=== PATIENT | female | born 1975 | race Caucasian/White ===

== ENCOUNTER 2016-08-09 05:13 | Inpatient (IN) | payer OTHER, MEDICAID ==
[2016-08-07 12:05] LABS: APPEARANCE,URINE CLEAR; BILIRUBIN,URINE NEGATIVE (NEGATIVE); GLUCOSE, URINE NEGATIVE (NEGATIVE); KETONES,URINE NEGATIVE (NEGATIVE); LEUKOCYTE ESTERASE,URINE NEGATIVE (NEGATIVE); NITRITE,URINE NEGATIVE (NEGATIVE); PROTEIN,URINE NEGATIVE (NEGATIVE); URINE SPECIFIC GRAVITY 1.014; UROBILINOGEN,URINE NEGATIVE mg/dL (<2.0)
[2016-08-07 12:08] LABS: ABSOLUTE LYMPHOCYTES (AUTO) 1.4 10^3/uL (0.5-4.7); ABSOLUTE MONOCYTES (AUTO) 0.7 10^3/uL (0.1-1.4); BASOPHILS % (AUTO) 0.3 % (0-2); EOSINOPHILS % (AUTO) 0.5 % (0-6); HEMATOCRIT 35.1 % (36.0-47.0); HEMOGLOBIN 12.1 g/dL (12.0-15.5); HGB HCT DIFFERENCE 1.2; MEAN CORPUSCULAR HEMOGLOBIN 31.3 pg (27.0-33.4); MEAN CORPUSCULAR HGB CONC 34.4 g/dL (32.0-36.0); MEAN CORPUSCULAR VOLUME 91 fl (80-97); MONOCYTES % (AUTO) 7.3 % (3-13); RED BLOOD COUNT 3.85 10^6/uL (3.72-5.28); RED CELL DISTRIBUTION WIDTH 14.1 % (11.5-14.0); SEGMENTED NEUTROPHILS % (AUTO) 76.9 % (42-78); WHITE BLOOD COUNT 9.1 10^3/uL (4.0-10.5)
[2016-08-07 12:21] LABS: URINE BARBITURATES SCREEN NEGATIVE; URINE METHADONE SCREEN NEGATIVE; URINE PHENCYCLIDINE SCREEN NEGATIVE
[~2016-08-09 05:13] MED LIST: CEFAZOLIN 2 GM/D5W RTU 2 GM/50 ML RTUPB IV SCH; RINGERS SOLUTION,LACTATED 1,000 ML IV PRN
[2016-08-09] MEDS ORDERED: PROPOFOL INJ 200 MG/20 ML VIAL IV ONE (07:34)
[2016-08-09] MEDS ORDERED: FENTANYL CITRATE INJ/PF 100 MCG/2 ML AMPUL ONE ×2 (07:35→10:46)
[2016-08-09] MEDS ORDERED: MIDAZOLAM 2 MG/2 ML INJ ONE (07:35)
[2016-08-09] MEDS ORDERED: OXYTOCIN 10 UNIT/ML VIAL ONE (07:35)
--- NOTE | 2016-08-09 09:06 | Non Stress Test Report ---
Non Stress Test Datetime Report Generated by CPN: 08/09/2016 09:05 DEMOGRAPHIC EGA NST: 37.0 INDICATION Indication for Study: Diabetes Mellitus; Ordered by Provider VITAL SIGNS Temperature - NST: 98.1 MONITORING Monitor Explained: Monitor Explained; Test Explained; Patient Verbalized Understanding Time on Monitor: 07/26/2016 16:39 Time off Monitor: 07/26/2016 17:07 NST Duration: 28 NST INTERVENTIONS NST Interventions: PO Hydration; Reposition Patient Physician Notified NST: Dr. Sharma BABY A: [id number] BABY A Movement : Present Contraction Frequency : irregular FHR Baseline : 135 Accelerations : 15X15 Decelerations : None Variability : Moderate 6-25bpm NST Review: Meets Criteria for Reactive NST NST Review and Verified By : Nela Petty RN NST Results: Reactive NST REPORT Report Trigger: Send Report
[2016-08-09] MEDS ORDERED: ACETAMINOPHEN 100 ML IV ONE (09:07)
--- NOTE | 2016-08-09 09:19 | Operative Report ---
Operative Report DATE OF SURGERY: 08/09/16 PREOPERATIVE DIAGNOSIS: Intrauterine at 39 weeks with history of C- section, desire for repeat to avoid uterine rupture and desire for permanent sterilization, gestational diabetic class AII on insulin POSTOPERATIVE DIAGNOSIS: Status post repeat low transverse cervical section with bilateral tubal ligation via Filshie clips, lysis of adhesions, class AII gestational diabetes OPERATION: Repeat low transverse cervical section with bilateral tubal ligation with Filshie clips SURGEON: BLAKE CHATMAN ANESTHESIA: Spinal TISSUE REMOVED OR ALTERED: Placenta ESTIMATED BLOOD LOSS: 450 mL INTRAOPERATIVE FINDINGS: George female infant, vertex presentation with clear amniotic fluid. Apgars were 6 and 7. Weight was 8 lbs. 5 oz. There were dense adhesions to the anterior aspect of the uterus. There was a serosal window on the left lower aspect of the uterus which was approximately 3-4 cm in size. Normal tubes and ovaries. PROCEDURE: After discussing risks benefits and alternatives of the procedure and obtaining informed consent the patient was taken to the operating room where spinal anesthesia was achieved. She was positioned in the dorsal supine position with a leftward tilt. She was then prepped and draped in the usual standard fashion. Pfannenstiel skin incision was made and the abdomen was entered in layers in the usual standard fashion. Dense adhesions of the uterus to the anterior aspect of the peritoneum were noted. Yazmin clamps were used to clamp and cut these. Suture ligation was performed. Manger of adhesions were taken down sharply. A low-transverse hysterotomy incision was made. The surgeon's hand was entered into the hysterotomy incision and the vertex elevated. After delivery of the head, shoulders and body were delivered easily. Nasopharynx and oropharynx were bulb suctioned. Cord was clamped x2 and cut. The infant was handed to pediatrics who were present. The placenta was manually extracted. The uterus was cleared of all clots and debris. The hysterotomy incision was closed with 0 Monocryl in a running locked fashion. A second layer closure was performed with 2-0 Vicryl. Excellent hemostasis was observed. Adhesion sites on the anterior aspect of the uterus were cauterized to assure hemostasis. A Filshie clip was placed across the isthmic portion of each fallopian tube. The uterus tubes and ovaries were returned to the peritoneal cavity. The cavity was irrigated with saline and hemostasis was again assured. [A layer of Interceed was placed in an inverted T fashion over the lower uterine segment and anterior aspect of the uterus.] Peritoneum was closed with 2-0 Vicryl in a pursestring fashion. Rectus muscles were loosely reapproximated with interrupted stitches of 2-0 Vicryl. The subfascial space was inspected and noted to be hemostatic. The fascia was closed with #1 Vicryl. The subcutaneous tissues were irrigated and hemostasis assured. The skin was closed in a subcuticular fashion with 4-0 Monocryl. An OpSite dressing was applied. The patient was taken to recovery in stable condition. All sponge needle lap and instrument counts were correct correct x2.
[2016-08-09] MEDS: IBUPROFEN 800 MG TABLET PO SCH ×3 (11:40→23:02)
[2016-08-09] MEDS ORDERED: HYDROMORPHONE HCL INJ/PF 2 MG/ML AMPULE IV PRN (11:47)
[2016-08-09] MEDS ORDERED: ONDANSETRON HCL INJ/PF 4 MG/2 ML SDV IV PRN (11:47)
[2016-08-09] MEDS ORDERED: ACETAMINOPHEN 325 MG TABLET PO PRN (11:47)
[2016-08-09] MEDS ORDERED: MEASLES,MUMPS&RUBELLA VACC/PF 0.5 ML VIAL SUBCUT PRN (11:47)
[2016-08-09] MEDS ORDERED: DIPH/PERTUSS(ACELL)/TETANUS VAC/PF 0.5 ML SYR (>=10YO) IM PRN (11:47)
[2016-08-09] MEDS ORDERED: OXYTOCIN/NORMAL SALINE 20 UNIT/1,000 ML RTUINJ INJ PRN (11:47)
[2016-08-09] MEDS ORDERED: SIMETHICONE 80 MG TAB.CHEW PO PRN (11:47)
[2016-08-09] MEDS ORDERED: PROMETHAZINE HCL INJ 25 MG/1 ML VIAL IM PRN (11:47)
--- NOTE | 2016-08-09 12:01 | L&D Flow Sheet ---
LD Flowsheet Datetime Report Generated by CPN: 08/09/2016 12:00 Datetime: 08/09/2016 10:53 Pulse: 81 (QS system process) SpO2 (%): 99 (QS system process) Datetime: 08/09/2016 10:50 NBP Sys/Katia/Mean (mmHg): 97 (QS system process) : 54 (QS system process) : 70 (QS system process) Pulse: 69 (QS system process) Datetime: 08/09/2016 10:48 Pulse: 76 (QS system process) SpO2 (%): 99 (QS system process) Datetime: 08/09/2016 10:43 Pulse: 71 (QS system process) SpO2 (%): 98 (QS system process) Datetime: 08/09/2016 10:38 Pulse: 70 (QS system process) SpO2 (%): 99 (QS system process) Datetime: 08/09/2016 10:35 NBP Sys/Katia/Mean (mmHg): 97 (QS system process) : 53 (QS system process) : 69 (QS system process) Pulse: 69 (QS system process) Datetime: 08/09/2016 10:33 Pulse: 70 (QS system process) SpO2 (%): 98 (QS system process) Datetime: 08/09/2016 10:28 Pulse: 68 (QS system process) SpO2 (%): 97 (QS system process) Datetime: 08/09/2016 10:23 Pulse: 69 (QS system process) SpO2 (%): 98 (QS system process) Datetime: 08/09/2016 10:20 NBP Sys/Katia/Mean (mmHg): 93 (QS system process) : 50 (QS system process) : 64 (QS system process) Pulse: 65 (QS system process) Datetime: 08/09/2016 10:18 Pulse: 65 (QS system process) SpO2 (%): 97 (QS system process) Datetime: 08/09/2016 10:13 Pulse: 72 (QS system process) SpO2 (%): 97 (QS system process) Datetime: 08/09/2016 10:08 Pulse: 73 (QS system process) SpO2 (%): 97 (QS system process) Datetime: 08/09/2016 10:05 NBP Sys/Katia/Mean (mmHg): 97 (QS system process) : 53 (QS system process) : 67 (QS system process) Pulse: 72 (QS system process) Datetime: 08/09/2016 10:03 Pulse: 71 (QS system process) SpO2 (%): 98 (QS system process) Datetime: 08/09/2016 09:58 Pulse: 67 (QS system process) SpO2 (%): 98 (QS system process) Datetime: 08/09/2016 09:53 Pulse: 70 (QS system process) SpO2 (%): 98 (QS system process) Datetime: 08/09/2016 09:50 NBP Sys/Katia/Mean (mmHg): 93 (QS system process) : 55 (QS system process) : 71 (QS system process) Pulse: 74 (QS system process) Datetime: 08/09/2016 09:48 Pulse: 77 (QS system process) SpO2 (%): 98 (QS system process) Datetime: 08/09/2016 09:43 Pulse: 74 (QS system process) SpO2 (%): 98 (QS system process) Datetime: 08/09/2016 09:38 Pulse: 76 (QS system process) SpO2 (%): 98 (QS system process) Datetime: 08/09/2016 09:35 NBP Sys/Katia/Mean (mmHg): 97 (QS system process) : 56 (QS system process) : 74 (QS system process) Pulse: 69 (QS system process) Datetime: 08/09/2016 09:33 Pulse: 71 (QS system process) SpO2 (%): 98 (QS system process) Datetime: 08/09/2016 09:30 NBP Sys/Katia/Mean (mmHg): 99 (QS system process) : 56 (QS system process) : 74 (QS system process) Pulse: 71 (QS system process) Datetime: 08/09/2016 09:28 Pulse: 74 (QS system process) SpO2 (%): 99 (QS system process) Datetime: 08/09/2016 09:25 NBP Sys/Katia/Mean (mmHg): 95 (QS system process) : 50 (QS system process) : 67 (QS system process) Pulse: 76 (QS system process) Datetime: 08/09/2016 09:23 Pulse: 83 (QS system process) SpO2 (%): 99 (QS system process) Datetime: 08/09/2016 09:20 NBP Sys/Katia/Mean (mmHg): 93 (QS system process) : 51 (QS system process) : 70 (QS system process) Pulse: 82 (QS system process) Datetime: 08/09/2016 09:18 Pulse: 86 (QS system process) SpO2 (%): 99 (QS system process) Datetime: 08/09/2016 09:16 Vital Signs Stage of : Recovery (Guerda Smallwood RN) NBP Sys/Katia/Mean (mmHg): 90 (QS system process) : 55 (QS system process) : 70 (QS system process) Pulse: 77 (QS system process) Respirations: 16 (Guerda Smallwood RN) Temperature (F): 97.4 (Guerda Smallwood RN) Temperature (C): 36.3 (QS system process) Temperature Route: Oral (Guerda Smallwood RN) Pain Pain Scale: 0 (Guerda Smallwood RN) Pain Presence: None/Denies (Guerda Cl, RN) Pain Type: N/A (Guerda Smallwood, RN) Pain Goal: 1 (Guerda Smallwood, RN) Pain Relief Measures: Comfort Measures (Guerda Cl, RN) Datetime: 08/09/2016 09:15 NBP Sys/Katia/Mean (mmHg): 85 (QS system process) : 48 (QS system process) : 63 (QS system process) Pulse: 82 (QS system process) Datetime: 08/09/2016 09:13 Vital Signs Stage of : Recovery (Guerda Smallwood, RN) Pulse: 84 (QS system process) SpO2 (%): 98 (QS system process) Datetime: 08/09/2016 09:10 NBP Sys/Katia/Mean (mmHg): 100 (QS system process) : 60 (QS system process) : 73 (QS system process) Pulse: 77 (QS system process) Communication LaborFlag: OB Triage (QS system process) Datetime: 08/09/2016 09:08 Pulse: 80 (QS system process) SpO2 (%): 100 (QS system process) Communication LaborFlag: OB Triage (QS system process) Datetime: 08/09/2016 09:05 NBP Sys/Katia/Mean (mmHg): 100 (QS system process) : 53 (QS system process) : 73 (QS system process) Pulse: 81 (QS system process) Communication LaborFlag: OB Triage (QS system process) Datetime: 08/09/2016 05:42 Bedside Blood Glucose: 107 (QS system process) Communication LaborFlag: OB Triage (QS system process)
[2016-08-09] MEDS: OXYCODONE-ACETAMINOPHEN 5-325 MG TABLET PO PRN ×2 (14:32→19:54)
[2016-08-09] MEDS: DOCUSATE SODIUM 100 MG CAPSULE PO SCH (17:47)
[2016-08-09] MEDS ORDERED: LIDOCAINE 2% INJ-PF (20 MG/ML) 10 ML AMPUL ONE (18:57)
[2016-08-09] MEDS ORDERED: PHENYLEPHRINE HCL INJ/PF 10 MG/1 ML SDV ONE (18:57)
[2016-08-09] MEDS ORDERED: METOCLOPRAMIDE HCL INJ/PF 10 MG/2 ML SDV ONE (18:57)
[2016-08-09] MEDS ORDERED: ONDANSETRON HCL INJ/PF 4 MG/2 ML SDV ONE (18:57)
[2016-08-10] MEDS: OXYCODONE-ACETAMINOPHEN 5-325 MG TABLET PO PRN ×2 (01:04→12:28)
[2016-08-10] MEDS: IBUPROFEN 800 MG TABLET PO SCH ×4 (05:47→23:39)
--- NOTE | 2016-08-10 06:07 | L&D General Admission ---
General Admit Datetime Report Generated by CPN: 08/10/2016 06:00 INFORMATION Patient Age: 41 (06/28/2016 10:56:QS system process) EDC: 08/16/2016 00:00 (06/28/2016 11:08:Guerda Smallwood RN) : 4 (06/28/2016 11:08:Kimberly Pitts RN) Para: 2 (07/26/2016 17:22:PATTIE Menendez) Term: 1 (06/28/2016 11:08:PATTIE Menendez) : 1 (06/28/2016 11:08:Kimberly Pitts RN) Spontaneous Abortions: 0 (06/28/2016 11:08:Kimberly Pitts RN) Induced Abortions: 0 (06/28/2016 11:08:Kimberly Pitts RN) Livin (06/28/2016 11:08:Kimberly Pitts RN) Cesareans: 1 (06/28/2016 11:08:Kimberly Pitts RN) VBACs: 0 (06/28/2016 11:08:Kimberly Pitts RN) Ectopic: 0 (06/28/2016 11:08:Kimberly Pitts RN) Multiple Births: 0 (06/28/2016 11:08:Kimberly Pitts RN) Baby, Number in Womb: 1 (07/26/2016 17:22:Zulma Ricci [facility]) CARE Primary Student Services Representative: [employer] (06/28/2016 11:08:Kimberly Pitts RN) Month of 1st Visit: December (06/28/2016 11:08:Guerda Smallwood RN) Adequate Care: Yes (06/28/2016 11:08:Guerda Smallwood RN) Height (in): 62 (08/09/2016 10:21:QS system process) ALLERGIES Medication Allergy: No (06/28/2016 11:08:Guerda Smallwood RN) Medication Allergies: No Known Allergies (07/26/2016) (07/26/2016 17:09:QS system process) Latex Allergy: No Latex Allergies (06/28/2016 11:08:Guerda Smallwood RN) Food Allergies: denies (06/28/2016 11:08:Guerda Smallwood RN) Environmental Allergies: denies (06/28/2016 11:08:Guerda Smallwood RN) COMMUNICATION Primary Language: [place] (06/28/2016 11:08:Kimberly Pitts RN) Medical Tx Preferred Language: [place] (06/28/2016 11:08:PATTIE Menendez) Communication Barrier(s): None (06/28/2016 11:08:Kimberly Pitts RN) DEMOGRAPHICS Address: [address] [place] [id number] (06/28/2016 10:56:QS system process) Zipcode: [phone] (06/28/2016 10:56:QS system process) Home (06/28/2016 10:56:QS system process) N: [phone] (06/28/2016 10:56:QS system process) Next of Kin Name: KIMBERLY MAE (06/28/2016 10:56:QS system process) Next of Kin (06/28/2016 10:56:QS system process) Next of Kin Relationship: MO (06/28/2016 10:56:QS system process) Date of : 1975 (06/28/2016 10:56:QS system process) Marital Status: Single (06/28/2016 10:56:QS system process) Sex: Female (06/28/2016 10:56:QS system process) Race: (06/28/2016 10:56:QS system process) Ethnicity: Non- or (06/28/2016 10:56:QS system process) Voodoo: Southern Tenriism (06/28/2016 10:56:QS system process) DRUG AND ALCOHOL USE Alcohol: No (06/28/2016 11:08:Guerda Smallwood RN) Cigarettes: Never Smoker. [id number] (06/28/2016 11:08:Guerda Smallwood RN) Marijuana: No (06/28/2016 11:08:Guerda Smallwood RN) Cocaine: No (06/28/2016 11:08:Guerda Smallwood RN) Other Illicit Drugs: No (06/28/2016 11:08:Guerda Smallwood RN) VACCINE HISTORY Influenza Vaccine: Yes (06/28/2016 11:08:Guerda Smallwood RN) Influenza Date: 05/2016 (06/28/2016 11:08:Guerda Smallwood RN) Pneumococcal Vaccine: No (06/28/2016 11:08:Guerda Smallwood RN) Tetanus Vaccine: Yes (06/28/2016 11:08:Guerda Smallwood RN) Tdap Vaccine: Yes (06/28/2016 11:08:Guerda Smallwood RN) Hepatitis B Vaccine: Yes (06/28/2016 11:08:Guerda Smallwood RN) Feeding Preference: Formula (06/28/2016 11:08:Guerda Smallwood RN) Benefit of Breast Feed Discussed: Yes (06/28/2016 11:08:Guerda Smallwood RN) Circumcision: N/A (06/28/2016 11:08:Guerda Smallwood RN) Classes Attended: No (06/28/2016 11:08:Guerda Smallwood RN) Tubal Ligation: Yes (06/28/2016 11:08:Guerda Smallwood RN) Tubal Authorization Signed: No (06/28/2016 11:08:Guerda Smallwood RN) Consent: N/A (06/28/2016 11:08:Guerda Smallwood RN) Consent Signed: N/A (06/28/2016 11:08:Guerda Smallwood RN) Pain Management Plans: Spinal (06/28/2016 11:08:Guerda Smallwood RN) Plans for Labor and Delivery: None (06/28/2016 11:08:Guerda Smallwood RN) Support Person: Harry Chamberlain (06/28/2016 11:08:Guerda Smallwood RN) Support Person Relationship: (06/28/2016 11:08:Guerda Smallwood RN) Cultural/Spritual Practice: No (06/28/2016 11:08:Guerda Smallwood RN) Spir/Cult Dietary Needs: No (06/28/2016 11:08:Guerda Smallwood RN) LIVING SITUATION/DISCHARGE PLAN Living Arrangements: House (06/28/2016 11:08:Guerda Smallwood RN) Adequate Access to:: Electric; Heat; Refrigeration; Plumbing/Running water; Phone; Transportation (06/28/2016 11:08:Guerda Smallwood RN) WIC Program: Yes (06/28/2016 11:08:Guerda Smallwood RN) Discharge Design Maker Person: Harry Chamberlain (06/28/2016 11:08:Guerda Smallwood RN) Person to Help after Discharge: Harry Chamberlain (06/28/2016 11:08:Guerda Smallwood RN) Currently Using Commun Resources: No (06/28/2016 11:08:Guerda Smallwood RN) Car Seat for Discharge: No (06/28/2016 11:08:Guerda Smallwood RN) Adoption Requested: No (06/28/2016 11:08:Guerda Smallwood RN) Pt Contact w/infant Post : N/A (06/28/2016 11:08:Guerda Smallwood RN) LABS Hemoglobin: 12.1 (08/07/2016 11:29:QS system process) Hematocrit: 35.1 L (08/07/2016 11:29:QS system process) MCV: 91 (08/07/2016 11:29:QS system process) OB/PREVIOUS HISTORY Previous Procedures: Ultrasound; NST (06/28/2016 11:08:Guerda Smallwood RN) Current Procedures: Ultrasound; NST (06/28/2016 11:08:Guerda Smallwood RN) History of Previous : No (06/28/2016 11:08:Guerda Smallwood RN) History of Gestational Diabetes: Yes (06/28/2016 11:08:Guerda Smallwood RN) History of PIH: No (06/28/2016 11:08:Guerda Smallwood RN) History of Incompetent Cervix: No (06/28/2016 11:08:Guerda Smallwood RN) History of Placenta Previa/Abrup: No (06/28/2016 11:08:Guedra Smallwood RN) History of Macrosomia: No (06/28/2016 11:08:Guerda Smallwood RN) History of IUGR: No (06/28/2016 11:08:Guerda Smallwood RN) History of Hemorrhage: Yes (06/28/2016 11:08:Guerda Smallwood RN) History of Loss/Stillborn: No (06/28/2016 11:08:Guerda Smallwood RN) History of : No (06/28/2016 11:08:Guerda Smallwood RN) History of D (Rh) Sensitization: No (06/28/2016 11:08:Guerda Smallwood RN) History Recurrent Loss/Stillborn: No (06/28/2016 11:08:Guerda Smallwood RN) History Depression/PP Depression: No (06/28/2016 11:08:Guerda Smallwood RN) History of Uterine Anomaly/KRISTAL: No (06/28/2016 11:08:Guerda Smallwood RN) History of Infertility: No (06/28/2016 11:08:Guerda Smallwood RN) History of ART Treatment: No (06/28/2016 11:08:Guerda Smallwood RN) History of KRISTAL: No (06/28/2016 11:08:Guerda Smallwood RN) MEDICAL HISTORY Med Hx Diabetes: No (06/28/2016 11:08:Guerda Smallwood RN) Med Hx Hypertension: No (06/28/2016 11:08:Guerda Smallwood RN) Med Hx Heart Disease: No (06/28/2016 11:08:Guerda Smallwood RN) Med Hx Autoimmune Disorder: No (06/28/2016 11:08:Guerda Smallwood RN) Med Hx Kidney Disease/UTI: No (06/28/2016 11:08:Guerda Smallwood RN) Med Hx Neurologic/Epilepsy: No (06/28/2016 11:08:Guerda Smallwood RN) Med Hx Psychiatric Disorders: No (06/28/2016 11:08:Guerda Smallwood RN) Med Hx Hepatitis/Liver Disease: No (06/28/2016 11:08:Guerda Smallwood RN) Med Hx Varicosities/Phlebitis: No (06/28/2016 11:08:Guerda Smallwood RN) Med Hx Thyroid Dysfunction: No (06/28/2016 11:08:Guerda Smallwood RN) Med Hx Trauma/Violence: No (06/28/2016 11:08:Guerda Smallwood RN) Med Hx Blood Transfusion: No (06/28/2016 11:08:Guerda Smallwood RN) Med Hx Pulmonary (Asthma,TB): No (06/28/2016 11:08:Guerda Smallwood RN) Med Hx Breast: No (06/28/2016 11:08:Guerda Smallwood RN) Med Hx LAUNCH MANAGER Surgery: No (06/28/2016 11:08:Guerda Smallwood RN) Med Hx Hospitalization/Surgery: Yes (06/28/2016 11:08:Guerda Smallwood RN) Med Hx Anesthetic Complications: No (06/28/2016 11:08:Guerda Smallwood RN) Med Hx Abnormal Pap Smear: No (06/28/2016 11:08:Guerda Smallwood RN) Other Medical Diseases: No (06/28/2016 11:08:Guerda Smallwood RN) Med Hx Significant Family Hx: No (06/28/2016 11:08:Guerda Smallwood RN) INFECTIOUS HISTORY Inf Hx Gonorrhea: Yes (06/28/2016 11:08:Guerda Smallwood RN) Inf Hx Chlamydia: Yes (06/28/2016 11:08:Guerda Smallwood RN) Inf Hx Syphilis: No (06/28/2016 11:08:Guerda Smallwood RN) Inf Hx HIV/AIDS: No (06/28/2016 11:08:Guerda Smallwood RN) Inf Hx Human Papilloma Virus: No (06/28/2016 11:08:Guerda Smallwood RN) Inf Hx Pt/Partner Genital Herpes: No (06/28/2016 11:08:Guerda Smallwood RN) Inf Hx Tuberculosis/Exposure: No (06/28/2016 11:08:Guerda Smallwood RN) Inf Hx Hepatitis B,C: No (06/28/2016 11:08:Guerda Smallwood RN) Inf Hx Rash or Viral Illness: No (06/28/2016 11:08:Gureda Smallwood RN) GENETIC HISTORY Gen Hx Age >=35 at BRYCE: No (06/28/2016 11:08:Guerda Smallwood RN) Gen Hx Thalassemia: No (06/28/2016 11:08:Guerda Smallwood RN) Gen Hx Neural Tube Defect: No (06/28/2016 11:08:Guerda Smallwood RN) Gen Hx Down's Syndrome: No (06/28/2016 11:08:Guerda Smallwood RN) Gen Hx Thony-Sachs: No (06/28/2016 11:08:Guerda Smallwood RN) Gen Hx [place]: No (06/28/2016 11:08:Guerda Smallwood RN) Gen Hx Familial Dysautonomia: No (06/28/2016 11:08:Guerda Smallwood RN) Gen Hx Sickle Cell Disease/Trait: No (06/28/2016 11:08:Guerda Smallwood RN) Gen Hx Hemophilia/Blood Disorder: No (06/28/2016 11:08:Guerda Smallwood RN) Gen Hx Muscular Dystrophy: No (06/28/2016 11:08:Guerda Smallwood RN) Gen Hx [place]tons Chorea: No (06/28/2016 11:08:Guerda Smallwood RN) Gen Hx Mental Retardation/Autism: No (06/28/2016 11:08:Guerda Smallwood RN) Gen Hx Tested for Fragile X: No (06/28/2016 11:08:Guerda Smallwood RN) Gen Hx Other Inher/Chromosomal: No (06/28/2016 11:08:Guerda Smallwood RN) Gen Hx Maternal Metabolic DO: No (06/28/2016 11:08:Guerda Smallwood RN) Gen Hx Pt Father or FOB Defect: No (06/28/2016 11:08:Guerda Smallwood RN) Gen Hx Other Genetic History: No (06/28/2016 11:08:Guerda Smallwood RN) Gen Hx Drugs/Meds since LMP: No (06/28/2016 11:08:Guerda Smallwood RN)
--- NOTE | 2016-08-10 06:07 | L&D Current Admission ---
Current Admit Datetime Report Generated by CPN: 08/10/2016 06:00 ADMISSION INFORMATION Chief Complaint: Suspected Rupture of Membranes (07/11/2016 09:14:Guerda Smallwood RN)
[2016-08-10 06:24] LABS: HEMATOCRIT 30.7 % (36.0-47.0); HEMOGLOBIN 10.4 g/dL (12.0-15.5); HGB HCT DIFFERENCE 0.5; MEAN CORPUSCULAR HGB CONC 33.8 g/dL (32.0-36.0); MEAN CORPUSCULAR VOLUME 92 fl (80-97); RED BLOOD COUNT 3.35 10^6/uL (3.72-5.28); RED CELL DISTRIBUTION WIDTH 14.5 % (11.5-14.0); WHITE BLOOD COUNT 10.7 10^3/uL (4.0-10.5)
[2016-08-10] MEDS: DOCUSATE SODIUM 100 MG CAPSULE PO SCH ×2 (09:46→17:53)
[2016-08-10] MEDS: PRENATAL VITAMIN W-O CA NO5/FE FUMARATE/FA CAPSULE PO SCH (09:46)
--- NOTE | 2016-08-10 12:21 | PDOC PROGRESS REPORT ---
Subjective-OB Subjective: Post Delivery Day: 41 year old. Denies any needs at this time Physical Exam (OB) Vital Signs: Temp Pulse Resp BP Pulse Ox 98.0 F 93 16 101/60 98 08/10/16 08:15 08/10/16 08:15 08/10/16 08:15 08/10/16 08:15 08/10/16 08:15 Intake & Output 08/09/16 08/10/16 08/11/16 06:59 06:59 06:59 Intake Total 3342 Output Total 1775 Balance 1567 Weight 87.997 kg - Dressing Removed: No - opsite dressing on Incision: Dressing - Bilateral Tubal Ligation Dressing Removed: No - opsite dressing Site: Dressing - Lochia Lochia Amount: Scant < 10 ml Lochia Color: Rubra/Red - Abdomen Description: Tender, Soft Hernia Present: No Bowel Sounds: Normoactive Flatus Presence: Absent Stool: No Fundal Description: Firm, Midline Fundal Height: u/u - u/2 Objective-Diagnostic Laboratory: 08/10/16 06:11 08/10/16 06:11 WBC 10.7 H RBC 3.35 L Hgb 10.4 L Hct 30.7 L MCV 92 MCH 31.0 MCHC 33.8 RDW 14.5 H Plt Count 198
[2016-08-11] MEDS: IBUPROFEN 800 MG TABLET PO SCH (05:31)
--- NOTE | 2016-08-11 06:08 | L&D Current Admission ---
Current Admit Datetime Report Generated by CPN: 08/11/2016 06:00 ADMISSION INFORMATION Chief Complaint: Suspected Rupture of Membranes (07/11/2016 09:14:Guerda Smallwood RN)
--- NOTE | 2016-08-11 06:08 | L&D General Admission ---
General Admit Datetime Report Generated by CPN: 08/11/2016 06:00 INFORMATION Patient Age: 41 (06/28/2016 10:56:QS system process) EDC: 08/16/2016 00:00 (06/28/2016 11:08:Guerda Smallwood RN) : 4 (06/28/2016 11:08:Kimberly Pitts RN) Para: 2 (07/26/2016 17:22:PATTIE Menendez) Term: 1 (06/28/2016 11:08:PATTIE Menendez) : 1 (06/28/2016 11:08:Kimberly Pitts RN) Spontaneous Abortions: 0 (06/28/2016 11:08:Kimberly Ptits RN) Induced Abortions: 0 (06/28/2016 11:08:Kimberly Pitts RN) Livin (06/28/2016 11:08:Kimberly Pitts RN) Cesareans: 1 (06/28/2016 11:08:Kimberly Pitts RN) VBACs: 0 (06/28/2016 11:08:Kimberly Pitts RN) Ectopic: 0 (06/28/2016 11:08:Kimberly Pitts RN) Multiple Births: 0 (06/28/2016 11:08:Kimberly Pitts RN) Baby, Number in Womb: 1 (07/26/2016 17:22:Zulma Ricci [facility] CARE Primary Gas Treater: [facility] (06/28/2016 11:08:Kimberly Pitts RN) Month of 1st Visit: December (06/28/2016 11:08:Guerda Smallwood RN) Adequate Care: Yes (06/28/2016 11:08:Guerda Smallwood RN) Height (in): 62 (08/09/2016 10:21:QS system process) ALLERGIES Medication Allergy: No (06/28/2016 11:08:Guerda Smallwood RN) Medication Allergies: No Known Allergies (07/26/2016) (07/26/2016 17:09:QS system process) Latex Allergy: No Latex Allergies (06/28/2016 11:08:Guerda Smallwood RN) Food Allergies: denies (06/28/2016 11:08:Guerda Smallwood RN) Environmental Allergies: denies (06/28/2016 11:08:Guerda Smallwood RN) COMMUNICATION Primary Language: Samoan (06/28/2016 11:08:Kimberly Pitts RN) Medical Tx Preferred Language: Samoan (06/28/2016 11:08:PATTIE Menendez) Communication Barrier(s): None (06/28/2016 11:08:Kimberly Pitts RN) DEMOGRAPHICS Address: [address] [place] [id number] (06/28/2016 10:56:QS system process) Zipcode: [phone] (06/28/2016 10:56:QS system process) Home (06/28/2016 10:56:QS system process) N: [id number] (06/28/2016 10:56:QS system process) Next of Kin Name: KIMBERLY MAE (06/28/2016 10:56:QS system process) Next of Kin (06/28/2016 10:56:QS system process) Next of Kin Relationship: MO (06/28/2016 10:56:QS system process) Date of : 1975 (06/28/2016 10:56:QS system process) Marital Status: Single (06/28/2016 10:56:QS system process) Sex: Female (06/28/2016 10:56:QS system process) Race: (06/28/2016 10:56:QS system process) Ethnicity: Non- or (06/28/2016 10:56:QS system process) Protestant: Southern Yazidi (06/28/2016 10:56:QS system process) DRUG AND ALCOHOL USE Alcohol: No (06/28/2016 11:08:Guerda Smallwood RN) Cigarettes: Never Smoker. [id number] (06/28/2016 11:08:Guerda Smallwood RN) Marijuana: No (06/28/2016 11:08:Guerda Smallwood RN) Cocaine: No (06/28/2016 11:08:Guerda Smallwood RN) Other Illicit Drugs: No (06/28/2016 11:08:Guerda Smallwood RN) VACCINE HISTORY Influenza Vaccine: Yes (06/28/2016 11:08:Guerda Smallwood RN) Influenza Date: 05/2016 (06/28/2016 11:08:Guerda Smallwood RN) Pneumococcal Vaccine: No (06/28/2016 11:08:Guerda Smallwood RN) Tetanus Vaccine: Yes (06/28/2016 11:08:Guerda Smallwood RN) Tdap Vaccine: Yes (06/28/2016 11:08:Guerda Smallwood RN) Hepatitis B Vaccine: Yes (06/28/2016 11:08:Guerda Smallwood RN) Feeding Preference: Formula (06/28/2016 11:08:Guerda Smallwood RN) Benefit of Breast Feed Discussed: Yes (06/28/2016 11:08:Guerda Smallwood RN) Circumcision: N/A (06/28/2016 11:08:Guerda Smallwood RN) Classes Attended: No (06/28/2016 11:08:Guerda Smallwood RN) Tubal Ligation: Yes (06/28/2016 11:08:Guerda Smallwood RN) Tubal Authorization Signed: No (06/28/2016 11:08:Guerda Smallwood RN) Consent: N/A (06/28/2016 11:08:Guerda Smallwood RN) Consent Signed: N/A (06/28/2016 11:08:Guerda Smallwood RN) Pain Management Plans: Spinal (06/28/2016 11:08:Guerda Smallwood RN) Plans for Labor and Delivery: None (06/28/2016 11:08:Guerda Smallwood RN) Support Person: Harry Chamberlain (06/28/2016 11:08:Guerda Smallwood RN) Support Person Relationship: (06/28/2016 11:08:Guerda Smallwood RN) Cultural/Spritual Practice: No (06/28/2016 11:08:Guerda Smallwood RN) Spir/Cult Dietary Needs: No (06/28/2016 11:08:Guerda Smallwood RN) LIVING SITUATION/DISCHARGE PLAN Living Arrangements: House (06/28/2016 11:08:Guerda Smallwood RN) Adequate Access to:: Electric; Heat; Refrigeration; Plumbing/Running water; Phone; Transportation (06/28/2016 11:08:Guerda Smallwood RN) WIC Program: Yes (06/28/2016 11:08:Guerda Smallwood RN) Discharge Nutrition Services Worker Person: Harry Chamberlain (06/28/2016 11:08:Guerda Smallwood RN) Person to Help after Discharge: Harry Chamberlain (06/28/2016 11:08:Guerda Smallwood RN) Currently Using Commun Resources: No (06/28/2016 11:08:Guerda Smallwood RN) Car Seat for Discharge: No (06/28/2016 11:08:Guerda Smallwood RN) Adoption Requested: No (06/28/2016 11:08:Guerda Smallwood RN) Pt Contact w/infant Post : N/A (06/28/2016 11:08:Guerda Smallwood RN) LABS Hemoglobin: 10.4 L (08/10/2016 06:11:QS system process) Hematocrit: 30.7 L (08/10/2016 06:11:QS system process) MCV: 92 (08/10/2016 06:11:QS system process) OB/PREVIOUS HISTORY Previous Procedures: Ultrasound; NST (06/28/2016 11:08:Guerda Smallwood RN) Current Procedures: Ultrasound; NST (06/28/2016 11:08:Guerda Smallwood RN) History of Previous : No (06/28/2016 11:08:Guerda Smallwood RN) History of Gestational Diabetes: Yes (06/28/2016 11:08:Guerda Smallwood RN) History of PIH: No (06/28/2016 11:08:Guerda Smallwood RN) History of Incompetent Cervix: No (06/28/2016 11:08:Guerda Smallwood RN) History of Placenta Previa/Abrup: No (06/28/2016 11:08:Guerda Smallwood RN) History of Macrosomia: No (06/28/2016 11:08:Guerda Smallwood RN) History of IUGR: No (06/28/2016 11:08:Guerda Smallwood RN) History of Hemorrhage: Yes (06/28/2016 11:08:Guerda Smallwood RN) History of Loss/Stillborn: No (06/28/2016 11:08:Guerda Smallwood RN) History of : No (06/28/2016 11:08:Guerda Smallwood RN) History of D (Rh) Sensitization: No (06/28/2016 11:08:Guerda Smallwood RN) History Recurrent Loss/Stillborn: No (06/28/2016 11:08:Guerda Smallwood RN) History Depression/PP Depression: No (06/28/2016 11:08:Guerda Smallwood RN) History of Uterine Anomaly/KRISTAL: No (06/28/2016 11:08:Guerda Smallwood RN) History of Infertility: No (06/28/2016 11:08:Guerda Smallwood RN) History of ART Treatment: No (06/28/2016 11:08:Guerda Smallwood RN) History of KRISTAL: No (06/28/2016 11:08:Guerda Smallwood RN) MEDICAL HISTORY Med Hx Diabetes: No (06/28/2016 11:08:Guerda Smallwood RN) Med Hx Hypertension: No (06/28/2016 11:08:Guerda Smallwood RN) Med Hx Heart Disease: No (06/28/2016 11:08:Guerda Smallwood RN) Med Hx Autoimmune Disorder: No (06/28/2016 11:08:Guerda Smallwood RN) Med Hx Kidney Disease/UTI: No (06/28/2016 11:08:Guerda Smallwood RN) Med Hx Neurologic/Epilepsy: No (06/28/2016 11:08:Guerda Smallwood RN) Med Hx Psychiatric Disorders: No (06/28/2016 11:08:Guerda Smallwood RN) Med Hx Hepatitis/Liver Disease: No (06/28/2016 11:08:Guerda Smallwood RN) Med Hx Varicosities/Phlebitis: No (06/28/2016 11:08:Guedra Smallwood RN) Med Hx Thyroid Dysfunction: No (06/28/2016 11:08:Guerda Smallwood RN) Med Hx Trauma/Violence: No (06/28/2016 11:08:Guerda Smallwood RN) Med Hx Blood Transfusion: No (06/28/2016 11:08:Guerda Smallwood RN) Med Hx Pulmonary (Asthma,TB): No (06/28/2016 11:08:Guerda Smallwood RN) Med Hx Breast: No (06/28/2016 11:08:Guerda Smallwood RN) Med Hx SCIENTIFIC SYSTEMS ANALYST Surgery: No (06/28/2016 11:08:Guerda Smallwood RN) Med Hx Hospitalization/Surgery: Yes (06/28/2016 11:08:Guerda Smallwood RN) Med Hx Anesthetic Complications: No (06/28/2016 11:08:Guerda Smallwood RN) Med Hx Abnormal Pap Smear: No (06/28/2016 11:08:Guerda Smallwood RN) Other Medical Diseases: No (06/28/2016 11:08:Guerda Smallwood RN) Med Hx Significant Family Hx: No (06/28/2016 11:08:Guerda Smallwood RN) INFECTIOUS HISTORY Inf Hx Gonorrhea: Yes (06/28/2016 11:08:Guerda Smallwood RN) Inf Hx Chlamydia: Yes (06/28/2016 11:08:Guerda Smallwood RN) Inf Hx Syphilis: No (06/28/2016 11:08:Guerda Smallwood RN) Inf Hx HIV/AIDS: No (06/28/2016 11:08:Guerda Smallwood RN) Inf Hx Human Papilloma Virus: No (06/28/2016 11:08:Guerda Smallwood RN) Inf Hx Pt/Partner Genital Herpes: No (06/28/2016 11:08:Guerda Smallwood RN) Inf Hx Tuberculosis/Exposure: No (06/28/2016 11:08:Guerda Smallwood RN) Inf Hx Hepatitis B,C: No (06/28/2016 11:08:Guerda Smallwood RN) Inf Hx Rash or Viral Illness: No (06/28/2016 11:08:Guerda Smallwood RN) GENETIC HISTORY Gen Hx Age >=35 at BRYCE: No (06/28/2016 11:08:Guerda Smallwood RN) Gen Hx Thalassemia: No (06/28/2016 11:08:Guerda Smallwood RN) Gen Hx Neural Tube Defect: No (06/28/2016 11:08:Guerda Smallwood RN) Gen Hx Down's Syndrome: No (06/28/2016 11:08:Guerda Smallwood RN) Gen Hx Thony-Sachs: No (06/28/2016 11:08:Guerda Smallwood RN) Gen Hx [place]: No (06/28/2016 11:08:Guerda Smallwood RN) Gen Hx Familial Dysautonomia: No (06/28/2016 11:08:Guerda Smallwood RN) Gen Hx Sickle Cell Disease/Trait: No (06/28/2016 11:08:Guerda Smallwood RN) Gen Hx Hemophilia/Blood Disorder: No (06/28/2016 11:08:Guerda Smallwood RN) Gen Hx Muscular Dystrophy: No (06/28/2016 11:08:Guerda Smallwood RN) Gen Hx Huntingtons Chorea: No (06/28/2016 11:08:Guerda Smallwood RN) Gen Hx Mental Retardation/Autism: No (06/28/2016 11:08:Guerda Smallwood RN) Gen Hx Tested for Fragile X: No (06/28/2016 11:08:Guerda Smallwood RN) Gen Hx Other Inher/Chromosomal: No (06/28/2016 11:08:Guerda Smallwood RN) Gen Hx Maternal Metabolic DO: No (06/28/2016 11:08:Guerda Smallwood RN) Gen Hx Pt Father or FOB Defect: No (06/28/2016 11:08:Guerda Smallwood RN) Gen Hx Other Genetic History: No (06/28/2016 11:08:Guerda Smallwood RN) Gen Hx Drugs/Meds since LMP: No (06/28/2016 11:08:Guerda Smallwood RN)
[2016-08-11] MEDS: OXYCODONE-ACETAMINOPHEN 5-325 MG TABLET PO PRN (09:08)
[2016-08-11] MEDS: PRENATAL VITAMIN W-O CA NO5/FE FUMARATE/FA CAPSULE PO SCH (09:08)
[2016-08-11] MEDS: DOCUSATE SODIUM 100 MG CAPSULE PO SCH (09:09)
--- NOTE | 2016-08-11 10:14 | PDOC PROGRESS REPORT ---
Subjective-OB Subjective: Post Delivery Day: 41 year old. Denies any needs at this time. Ready to go home. Physical Exam (OB) Vital Signs: Temp Pulse Resp BP Pulse Ox 97.9 F 86 16 98/60 L 97 08/11/16 08:14 08/11/16 08:14 08/11/16 08:14 08/11/16 08:14 08/11/16 08:14 Intake & Output 08/10/16 08/11/16 08/12/16 06:59 06:59 06:59 Intake Total 3342 600 Output Total 1775 Balance 1567 600 - Dressing Removed: No - opsite dressing on Incision: Dressing - Bilateral Tubal Ligation Dressing Removed: No - opsite dressing Site: Dressing - Lochia Lochia Amount: Small 10-25 ml Lochia Color: Rubra/Red - Abdomen Description: Soft, Round Hernia Present: No Bowel Sounds: Normoactive Flatus Presence: Present Stool: No Fundal Description: Firm, Midline Fundal Height: u/u - u/2 Objective-Diagnostic Laboratory: 08/10/16 06:11
--- NOTE | 2016-08-11 10:23 | PDOC DISCHARGE SUMMARY ---
Discharge Summary-OB Discharge Date: 08/11/16 - Final Diagnosis (1) AMA (advanced maternal age) multigravida 35+ Is this a current diagnosis for this admission?: Yes (2) Delivery by elective caesarean section Is this a current diagnosis for this admission?: Yes (3) Gestational diabetes mellitus (GDM) requiring insulin Is this a current diagnosis for this admission?: Yes - Discharge Medication Home Medications: Vit/Iron Fumarate/FA [ Tablet] 1 each PO DAILY 06/28/16 Docusate Sodium [Colace 100 mg Capsule] 100 mg PO BID #30 capsule 08/11/16 Ibuprofen [Motrin 800 mg Tablet] 800 mg PO Q6 #30 tablet 08/11/16 Oxycodone HCl/Acetaminophen [Percocet 5-325 mg Tablet] 1 tab PO Q4HP PRN #20 tablet 08/11/16 Reason(s) for Admission: Ceasarean Section-Repeat Procedures: Ultrasound Intrapartum Procedure(s): : Low Cervical, Transverse - [place] Data Baby 1 Female at 1 minute: 6 at 5 minutes: 7 Weight: 3.77 kg Home with Mother: Yes Complications: No - Diagnosis Test Laboratory: Temp Pulse Resp BP Pulse Ox 97.9 F 86 16 98/60 L 97 08/11/16 08:14 08/11/16 08:14 08/11/16 08:14 08/11/16 08:14 08/11/16 08:14 08/07/16 08/07/16 08/10/16 11:15 11:29 06:11 RBC 3.85 3.35 L Hgb 12.1 10.4 L Hct 35.1 L 30.7 L Urine Opiates Screen NEGATIVE - Discharge information/Instructions Discharge Activity: Activity As Tolerated, Balance Activity w/Rest, No Lifting Over 10 Pounds, No Lifting/Push/Pulling, Non-Ambulatory Child, Pelvic Rest, Slowly Increase Activity, No tub bath Discharge Diet: Regular Disposition: HOME, SELF-CARE Follow up with: [facility] in: 1, Weeks
[2016-08-11 10:36] VITALS: BP 128/72
== END 2016-08-11 13:10 | disposition home or self-care (01) | DRG 766 ==
LOC: 2S 05:13
PROVIDERS: ADMIT Specialist; ATTEND Specialist
PROC: 0UL70CZ Occlusion of Bilateral Fallopian Tubes with Extraluminal Device, Open Approach (ICD-10-PCS; 2016-08-09)
PROC: 4A1HXCZ Monitoring of Products of Conception, Cardiac Rate, External Approach (ICD-10-PCS; 2016-08-09)
PROC: 10D00Z1 Extraction of Products of Conception, Low, Open Approach (ICD-10-PCS; principal; 2016-08-09 07:45)
DX: O34.211 Maternal care for low transverse scar from previous cesarean delivery (principal); O24.424 Gestational diabetes mellitus in childbirth, insulin controlled; O99.89 Other specified diseases and conditions complicating pregnancy, childbirth and the puerperium; N73.6 Female pelvic peritoneal adhesions (postinfective); Z37.0 Single live birth; Z3A.39 39 weeks gestation of pregnancy; Z30.2 Encounter for sterilization
CPT/HCPCS: 1961; 36415; 59025; 80301; 81001; 82962; 85025; 85027; 86850; 86900; 86901; 94799; C1765; G0479; J0131; J1170; J2250; J2370; J2405; J2590; J2704; J2765; J3010; J3490; J7120